=== PATIENT | female | born 1980 | race Caucasian/White ===

== ENCOUNTER 2019-08-05 17:25 | Emergency (ER) | payer OTHER, BC ==
[~2019-08-05] VITALS: Ht 186 cm; Wt 136.0 kg
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
[2019-08-05] MEDS ORDERED: IBUPROFEN 800 MG (MOTRIN) TAB PO ONE (18:00)
[2019-08-05 18:12] LABS: BASOPHILS % (AUTO) 0 % (0-10); EOSINOPHILS # (AUTO) 0.1 10^3/uL (0.0-0.3); EOSINOPHILS % (AUTO) 1 % (0-10); HEMATOCRIT 40 % (35-52); HEMOGLOBIN 13.6 G/DL (11.5-16.0); LYMPHOCYTES # (AUTO) 1.5 X 10^3 (1.0-4.0); LYMPHOCYTES % (AUTO) 15 % (12-44); MEAN CORPUSCULAR HEMOGLOBIN 31 PG (25-34); MEAN CORPUSCULAR HGB CONC 34 G/DL (32-36); MEAN CORPUSCULAR VOLUME 89 FL (80-99); MEAN PLATELET VOLUME 9.9 FL (7.4-10.4); MONOCYTES # (AUTO) 0.7 X 10^3 (0.0-1.0); MONOCYTES % (AUTO) 7 % (0-12); NEUTROPHILS # (AUTO) 7.5 X 10^3 (1.8-7.8); NEUTROPHILS % (AUTO) 77 % (42-75); PLATELET COUNT 246 10^3/uL (130-400); RED CELL DISTRIBUTION WIDTH 12.7 % (10.0-14.5); WHITE BLOOD COUNT 9.7 10^3/uL (4.3-11.0)
[2019-08-05] MEDS ORDERED: HOLD METFORMIN - RECEIVED CONTRAST 20 ML VIAL IV SCH (18:45)
[2019-08-05] MEDS ORDERED: NS 100 ML (IVPB) BAG IV ONE (18:45)
[2019-08-05] MEDS ORDERED: CATHETER FLUSH 10 ML SYR IV PRN (18:45)
[2019-08-05] MEDS ORDERED: IOHEXOL 350 MG/ML 100 ML (OMNIPAQUE 350) VIAL IV ONE (18:45)
--- NOTE | 2019-08-05 19:10 | NUR ---
SPOKE WITH PATIENT INTRODUCED SELF, DISCUSSED CARE PLAN. CALL LIGHT IN REACH, PATIENT IS ALERT AND ORIENTED X 4, VERBALIZES UNDERSTANDING OF CALL LIGHT USE. WILL CONTINUE TO MONITOR
--- OUTSIDE RECORDS SUMMARY | 2019-08-05 19:25 | XMS REPORT ---
Author Author Chelsy MOSELEY Organization [facility] Address [address] [place] [address] Care Team Providers Care Software Build Engineer Name Role Phone SHIRA MOSELEY Unavailable PROBLEMS Type Condition ICD9-CM Code TFM42-MR Code Onset Dates Condition S tatus SNOMED Code Problem Acute upper respiratory infections of unspecified site 465.9 Active 92664797 Problem Acute sinusitis, unspecified 461.9 A ctive [id number] ALLERGIES No Information ENCOUNTERS Encounter Location Date Diagnosis OUTREACH [facility] [id number] [place] [phone] Dec, Encounter for immunization Z23 [facility] [address] [facility] [id number] [address] [place] [phone] May, [facility] [address] [facility] [id number] [address] [place] [phone] May, [facility] [address] [facility] [id number] [address] [place] [phone] Jul, [facility] [address] [facility] [id number] [address] [place] [phone] Jul, [facility] [address] [facility] [id number] [address] [place] [phone] Apr, [facility] [address] [facility] [id number] [address] [place] [phone] Apr, [facility] [address] [facility] [id number] [address] [place] [phone] Jan, [facility] [address] [facility] [id number] [address] [place] [phone] Jan, [facility] [address] [facility] [id number] [address] [place] [phone] Jan, [facility] [address] [facility] [id number] [address] [place] [phone] Jan, [facility] [address] [facility] [id number] [address] [place] [phone] Jan, IMMUNIZATIONS No Known Immunizations SOCIAL HISTORY Never Assessed REASON FOR VISIT PLAN OF CARE VITAL SIGNS MEDICATIONS Unknown Medications RESULTS No Results PROCEDURES No Known procedures INSTRUCTIONS MEDICATIONS ADMINISTERED No Known Medications
--- OUTSIDE RECORDS SUMMARY | 2019-08-05 19:26 | XMS REPORT ---
Author Author Chelsy Cavanaugh Doctor Organization [facility] Address Unknown Phone Unavailable Care Team Providers Care Tallier Name Role Phone Migration, Doctor Unavailable Unavailable PROBLEMS Type Condition ICD9-CM Code OLK42-AU Code Onset Dates Condition S tatus SNOMED Code Problem Acute upper respiratory infections of unspecified site 465.9 Active 89603130 Problem Acute sinusitis, unspecified 461.9 A ctive [id number] ALLERGIES No Information ENCOUNTERS Encounter Location Date Diagnosis [facility] [address] [id number] [address] [place] [phone] May, [facility] [address] [id number] [address] [place] [phone] May, [facility] [address] [id number] [address] [place] [phone] Jul, [facility] [address] [id number] [address] [place] [phone] Jul, [facility] [address] [id number] [address] [place] [phone] Apr, [facility] [address] [id number] [address] [place] [phone] Apr, [facility] [address] [id number] [address] [place] [phone] Jan, [facility] [address] [id number] [address] [place] [phone] Jan, [facility] [address] [id number] [address] [place] [phone] Jan, [facility] [address] [id number] [address] [place] [phone] Jan, [facility] [address] [id number] [address] [place] [phone] Jan, IMMUNIZATIONS No Known Immunizations SOCIAL HISTORY Never Assessed REASON FOR VISIT EMR-[facility] PLAN OF CARE VITAL SIGNS MEDICATIONS Unknown Medications RESULTS No Results PROCEDURES No Known procedures INSTRUCTIONS MEDICATIONS ADMINISTERED No Known Medications
--- OUTSIDE RECORDS SUMMARY | 2019-08-05 19:26 | XMS REPORT ---
Author Author Chelsy NORIEGA Organization [facility] Address [address] [place] [address] Care Team Providers Care Geographic Information Scientist Name Role Phone RENETTAYoandy JESSICA Unavailable PROBLEMS Type Condition ICD9-CM Code KMI75-JH Code Onset Dates Condition S tatus SNOMED Code Problem Acute upper respiratory infections of unspecified site 465.9 Active 92490179 Problem Acute sinusitis, unspecified 461.9 A ctive [id number] ALLERGIES No Information ENCOUNTERS Encounter Location Date Diagnosis OUTREACH [facility] [address] [facility] [id number] [place] [address] Dec, Encounter for immunization Z23 [facility] [address] [address] May, [facility] [address] [address] May, [facility] [address] [phone] Jul, [facility] [address] [phone] Jul, [facility] [address] [phone] Apr, [facility] [address] [address] Apr, [facility] [address] [phone] Jan, [facility] [address] [phone] Jan, [facility] [address] [address] Jan, [facility] [address] [facility] [id number] [place] [address] Jan, [facility] [address] [id number] [place] [address] Jan, IMMUNIZATIONS No Known Immunizations SOCIAL HISTORY Never Assessed REASON FOR VISIT PLAN OF CARE VITAL SIGNS MEDICATIONS Unknown Medications RESULTS No Results PROCEDURES No Known procedures INSTRUCTIONS MEDICATIONS ADMINISTERED No Known Medications
--- OUTSIDE RECORDS SUMMARY | 2019-08-05 19:26 | XMS REPORT | Continuity of Care Document ---
Author Organization Unknown Address Unknown Phone Unavailable Allergies Active Description Code Type Severity Reaction Onset Reported/Identified Relationship to Patient Clinical Status Yes No Known Drug Allergies [id number] Drug Allergy Unknown N/A 08/05/2019 Medications There is no data. Problems Date Dx Coded Attending Type Code Diagnosis Diagnosed By 10/01/2010 SHIRA MOSELEY APRN V7 4.1 TB SCREENING 10/01/2010 MARE ZHU DO V74.1 TB SCREENING 01/17/2011 SHIRA MOSELEY APRN 46 6.0 ACUTE BRONCHITIS 01/17/2011 SHIRA MOSELEY APRN 47 7.9 ALLERGIC RHINITIS 01/17/2011 MARE ZHU DO K 466.0 ACUTE BRONCHITIS 01/17/2011 MARE ZHU DO K 477.9 ALLERGIC RHINITIS 01/23/2012 SHIRA MOSELEY APRN 46 5.9 UPPER RESPIRATORY INFECTION 01/23/2012 MARE ZHU DO K 465.9 UPPER RESPIRATORY INFECTION 04/16/2013 MARE ZHU DO K 461.9 SINUSITIS ACUTE Procedures There is no data. Results Test Result Range Complete blood count (CBC) with automate d white blood cell (WBC) differential - 08/05/19 18:04 Blood leukocytes automated count (number/volume) 9.7 10*3/uL 4.3-11.0 Blood erythrocytes automated count (number/volume) 4.43 10*6/uL 4.35-5.85 Venous blood hemoglobin measurement (mass/volume) 13.6 g/dL 11.5-16.0 Blood hematocrit (volume fraction) 40 % 35-52 Automated erythrocyte mean corpuscular volume 89 [ foz_us] 80-99 Automated erythrocyte mean corpuscular h emoglobin (mass per erythrocyte) 31 pg 25-34 Automated erythrocyte mean corpuscular h emoglobin concentration measurement (mass/volume) 34 g/dL 32-36 Automated erythrocyte distribution width ratio 12. 7 % 10.0- 14.5 Automated blood platelet count (count/volume) 246 10*3/uL 130-400 Automated blood platelet mean volume measurement 9.9 [foz_us] 7.4-10.4 Automated blood neutrophils/100 leukocytes 77 % 42-75 Automated blood lymphocytes/100 leukocytes 15 % 12-44 Blood monocytes/100 leukocytes 7 % 0-12 Automated blood eosinophils/100 leukocytes 1 % 0-10 Automated blood basophils/100 leukocytes 0 % 0-10 Blood neutrophils automated count (number/volume) 7.5 10*3 1.8-7.8 Blood lymphocytes automated count (number/volume) 1.5 10*3 1.0-4.0 Blood monocytes automated count (number/volume) 0. 7 10*3 0.0-1.0 Automated eosinophil count 0.1 10*3/uL 0 .0-0.3 Automated blood basophil count (count/volume) 0.0 10*3/uL 0.0-0.1 Serum or plasma choriogonadotropin (preg shirley test) detection - 08/05/19 18:04 Serum or plasma choriogonadotropin ( test) de tection NEGATIVE NEGATIVE Encounters ACCT No. Visit Date/Time Discharge Status Pt. Type Provider Facility Loc./Unit Complaint [id number] 04/16/2013 10:03:00 04/16/2013 23:59: 59 CLS Outpatient MARE ZHU DO [id number] 01/23/2012 11:39:00 01/23/2012 23:59: 59 CLS Outpatient SHIRA MOSELEY APRN [id number] 08/05/2019 17:27:[address] Emergency ANN PENALOZA APRN Via [facility] ER L SIDED PAIN,
--- OUTSIDE RECORDS SUMMARY | 2019-08-05 19:26 | XMS REPORT ---
Author Author Chelsy NORIEGA [facility] Address [address] [place] [address] Care Team Providers Care Title I Director Name Role Phone RENETTAYoandy JESSICA Unavailable PROBLEMS Type Condition ICD9-CM Code [id number] Code Onset Dates Condition S tatus SNOMED Code Problem Acute upper respiratory infections of unspecified site 465.9 Active 82642640 Problem Acute sinusitis, unspecified 461.9 A ctive [id number] ALLERGIES No Information ENCOUNTERS Encounter Location Date Diagnosis OUTREACH [facility] [address] [facility] [id number] [place] [address] Dec, Encounter for immunization Z23 [facility] [address] [address] May, [facility] [address] [address] May, [facility] [address] [address] Jul, [facility] [address] [address] Jul, [facility] [address] [address] Apr, [facility] [address] [address] Apr, [facility] [address] [address] Jan, [facility] [address] [address] Jan, [facility] [address] [address] Jan, [facility] [address] [facility] [id number] [place] [address] Jan, [facility] [address] [id number] [place] [address] Jan, IMMUNIZATIONS No Known Immunizations SOCIAL HISTORY Never Assessed REASON FOR VISIT PLAN OF CARE VITAL SIGNS Height 73 in 2013-04-16 Weight 267.5 lbs 2013-04-16 Temperature 97.1 degrees Fahrenheit 2013-04-16 Heart Rate 86 bpm 2013-04-16 Respiratory Rate 99 2013-04-16 Blood pressure systolic 110 mmHg 2013-04-16 Blood pressure diastolic 82 mmHg 2013-04-16 MEDICATIONS Unknown Medications RESULTS No Results PROCEDURES No Known procedures INSTRUCTIONS MEDICATIONS ADMINISTERED No Known Medications
--- OUTSIDE RECORDS SUMMARY | 2019-08-05 19:26 | XMS REPORT ---
Author Author Chelsy Cavanaugh Doctor Organization [facility] Address Unknown Phone Unavailable Care Team Providers Care Vacuum Drum Drier Operator Name Role Phone Migration, Doctor Unavailable Unavailable PROBLEMS Type Condition ICD9-CM Code ZCT66-IO Code Onset Dates Condition S tatus SNOMED Code Problem Acute upper respiratory infections of unspecified site 465.9 Active 11400466 Problem Acute sinusitis, unspecified 461.9 A ctive [id number] ALLERGIES No Information ENCOUNTERS Encounter Location Date Diagnosis [facility] [address] [id number] [address] [place] [phone] May, [facility] [address] [id number] [address] [place] [phone] May, [facility] [address] [id number] [address] [place] [phone] Jul, [facility] [address] [id number] [address] [place] [phone] Jul, [facility] [address] [id number] [address] [place] [phone] Apr, [facility] [address] [id number] [address] [place] [phone] Apr, [facility] [address] [id number] [address] [place] [phone] Jan, [facility] [address] [id number] [address] [place] [phone] Jan, [facility] [address] [id number] [address] [place] [phone] Jan, [facility] [address] [id number] [address] [place] [phone] Jan, [facility] [address] [id number] [address] [place] [phone] Jan, IMMUNIZATIONS No Known Immunizations SOCIAL HISTORY Never Assessed REASON FOR VISIT [facility] PLAN OF CARE VITAL SIGNS MEDICATIONS Medication Instructions Dosage Frequency Start Date End Date Duration S tatus Promethazine-Codeine 6.25-10 mg/5 mL 10 mL by Oral route every 6 hours for 7 day(s) at night Apr, Active Guaifenesin 600 mg 600 mg by Oral route every 12 hoursPRN Jan, Active cetirizine 10 mg 1 tablet by Oral route 1 time per day 0 Jul, Active Azithromycin 250 mg 2 Tablet by Oral rou te on day 1 then take 1 daily for 5 days Apr, Active Tessalon Perles 100 mg 1 capsule by Oral route 3 times per day PRN Apr, Active RESULTS No Results PROCEDURES No Known procedures INSTRUCTIONS MEDICATIONS ADMINISTERED No Known Medications
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
[2019-08-05] MEDS ORDERED: RX-HYDROCODONE/APAP 5/325 MG #4 TAB PK PO PRN (20:15)
[2019-08-05 20:25] VITALS: BP 130/100
== END 2019-08-05 20:27 | disposition home or self-care (01) ==
LOC: EDUNIT# 17:25 → ER 17:27
DX: S20.212A Contusion of left front wall of thorax, initial encounter (principal); R40.2142 Coma scale, eyes open, spontaneous, at arrival to emergency department; R40.2252 Coma scale, best verbal response, oriented, at arrival to emergency department; R40.2362 Coma scale, best motor response, obeys commands, at arrival to emergency department; V49.40XA Driver injured in collision with unspecified motor vehicles in traffic accident, initial encounter; Y92.411 Interstate highway as the place of occurrence of the external cause
CPT/HCPCS: 36415; 71260; 74177; 84703; 85025